=== PATIENT | male | born 1990 | race Caucasian/White ===

== ENCOUNTER 2016-10-12 16:27 | Emergency (ER) | payer SELFPAY ==
[2016-10-12 16:30] VITALS: BP 104/55; PULSE 96; TEMP 98.3; BMI 22.8
--- NOTE | 2016-10-12 17:19 | PDOC ---
History of Present Illness - General Chief Complaint: Injury Stated Complaint: RT ANKLE INJURY Time Seen by Provider: 10/12/16 17:18 History Source: Patient Exam Limitations: No Limitations - History of Present Illness Initial Comments: 10/12/16 17:19 Patient complains of right ankle pain status post fall at work. States was an inversion type injury, is able to ambulate but is painful. No history of sprained to that same ankle 10/12/16 17:28 10/12/16 17:38 Occurred: reports: just prior to arrival Severity: reports: mild, moderate Pain Location: reports: lower extremity (right ankle , inversion) Method of Injury: Yes: unknown, fall Modifying Factors: improves with: None Associated Symptoms (Fall): denies symptoms Past History - Travel Traveled outside of the country in the last 30 days: No Close contact w/someone who was outside of country & ill: No - Past Medical History Allergies/Adverse Reactions: Allergies Allergy/AdvReac Type Severity Reaction Status Date / Time No Known Allergies Allergy Verified 10/12/16 16:30 Home Medications: Ambulatory Orders Omeprazole [Prilosec] 40 mg PO ASDIR 12/31/15 Anemia: No Asthma: Yes Cancer: No Cardiac Disorders: No CVA: No COPD: No CHF: No Dementia: No Diabetes: No GI Disorders: Yes (STOMACH PAIN) Disorders: No HTN: No Hypercholesterolemia: No Liver Disease: No Seizures: No Thyroid Disease: No - Immunization History Immunization Up to Date: No - Psycho/Social/Smoking Cessation Hx Anxiety: No Suicidal Ideation: No Smoking History: Never smoked Information on smoking cessation initiated: No Hx Alcohol Use: No Drug/Substance Use Hx: No Substance Use Type: None Review of Systems - Review of Systems Able to Perform ROS?: Yes Is the patient limited [place] proficient: Yes Constitutional: Yes: See HPI. No: Symptoms Reported, Malaise HEENTM: No: Symptoms Reported Musculoskeletal: Yes: Symptoms Reported, See HPI, Joint Pain, Joint Swelling Integumentary: Yes: See HPI. No: Symptoms Reported All Other Systems: Reviewed and Negative *Physical Exam - Vital Signs Last Vital Signs Temp Pulse Resp BP Pulse Ox 98.3 F 96 H 18 104/55 98 10/12/16 16:29 10/12/16 16:29 10/12/16 16:29 10/12/16 16:29 10/12/16 16:29 - Physical Exam General Appearance: Yes: Nourished, Appropriately Dressed, Apparent Distress, Mild Distress HEENT: positive: TONY, Normal ENT Inspection, TMs Normal, Pharynx Normal Neck: positive: Supple. negative: Tender Extremity: positive: Normal Capillary Refill, Normal Inspection, Tender (tender to right lateral malleolus, no crepitus or step-offs, negative squeeze test, negative medial malleoli are, fifth metatarsal or navicular tenderness.). 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 Will treat with Vance , Aircast and crutches Medical Decision Making - Medical Decision Making 10/12/16 17:59 10/12/16 18:00 And crutches. No evidence of fracture in x-ray *DC/Admit/Observation/Transfer Diagnosis at time of Disposition: Sprain of right ankle Qualifiers: Encounter type: initial encounter Involved ligament of ankle: unspecified ligament Qualified Code(s): S93.401A - Sprain of unspecified ligament of right ankle, initial encounter - Discharge Dispostion Disposition: HOME Condition at time of disposition: Stable Admit: No - Referrals Referrals: Luis Grimm MD [Primary Care Provider] - Marc Abreu MD [Staff Physician] - - Patient Instructions Printed Discharge Instructions: DI for Ankle Sprain Additional Instructions: Rest, ice to area on and off for 15 minutes 4-6 times a day Avoid heavy lifting or exercise until pain and swelling is resolved or until further directed Keep area highly elevated to reduce swelling Use splints/Vance wrap as directed Followup with orthopedist in one to 2 days if not improving, if significantly improved may wait one week for followup with orthopedist May use ibuprofen 2-200 mg tablets every 6 hours as needed for pain - Post Discharge Activity Work/School Note: Back to Work
== END 2016-10-12 18:15 | disposition home or self-care (01) ==
LOC: JERFT 16:27
PROC: 2W3LX1Z Immobilization of Right Lower Extremity using Splint (ICD-10-PCS; principal; 2016-10-12)
DX: S93.401A Sprain of unspecified ligament of right ankle, initial encounter (principal); W18.39XA Other fall on same level, initial encounter; Y93.89 Activity, other specified; Y92.89 Other specified places as the place of occurrence of the external cause; Y99.0 Civilian activity done for income or pay
CPT/HCPCS: 73610-TC-RT; 99282-25

== ENCOUNTER 2019-04-16 23:53 | Emergency (ER) | payer OTHER ==
[2019-04-17] VITALS: BP 117/63; PULSE 97; TEMP 98.3; BMI 24.3
[2019-04-17] MEDS ORDERED: IBUPROFEN 600 MG TABLET (FP) PO ONE ×2 (00:23→00:24)
--- NOTE | 2019-04-17 00:32 | PDOC ---
Documentation entered by Corrie Nieto SCRIBE, acting as scribe for Esme Paniagua DO. Esme Paniagua, DO: This documentation has been prepared by the scribe, Corrie Nieto SCRIBE, under my direction and personally reviewed by me in its entirety. I confirm that the documentation accurately reflects all work, treatment, procedures, and medical decision making performed by me. Attending Attestation - Resident Resident Name: Chandler Betancur - ED Attending Attestation I have performed the following: I have examined & evaluated the patient, The case was reviewed & discussed with the resident, I agree w/resident's findings & plan, Exceptions are as noted - HPI HPI: 04/17/19 00:40 The patient is a 28-year-old male with a past medical history significant for childhood asthma who presents to the emergency department with left foot pain. The patient reports around 5:00 pm today he was playing basketball, denies known injury, however when he was walking after the game, he was limping. The patient reports associated with numbness and tingling to the foot. The patient reports the pain is present with ambulation and rest. The patient reports taking Tylenol for the pain denies relief. - Physicial Exam PE: 04/17/19 00:34 GENERAL: Awake, alert, and fully oriented, in no acute distress Lower extremity: No tibia or fibula tenderness. No lateral or medial malleolus tenderness. Ankle stable, tenderness along the 1st, 2nd and 3rd metatarsal, pain with movement. Sensation intact, brisk cap refill, pulse intact, no pain to the 4th or 5th metatarsal. Bruising to the dorsum aspect of the 2nd digit at the MTP. Soft tissue swelling. - Medical Decision Making 04/17/19 00:30 I, Dr. Esme Paniagua DO, attest that this document has been prepared under my direction and personally reviewed by me in its entirety. I further attest, that it accurately reflects all work, treatment, procedures and medical decision -making performed by me. a/p: 28yo male with L foot pain after playing basketball -pt with bruising to the 2nd MTP dorsum side of food -soft tissue swelling -pt with pain along 1st, 2nd, 3rd met -concern for fx -will send for xray, ice, motrin - took tylenol prior to arrival -ambultory in the ed 04/17/19 01:07 pt with 2nd and 3rd metatarsal fx will place in posterior leg splint and crutches pt will need ortho follow up and RICE at home 04/17/19 01:08 pt stable for dc to home with ortho follow up Procedures - Splinting Splint Location: Left: Foot Pre-Proc Neuro Vasc Exam: normal Hand-Made Type: orthoglass Splint Type: Yes: Short Leg (posterior short leg to L leg) Post-Proc Neuro Vasc Exam: normal Vance Bandage: yes, 4"
--- NOTE | 2019-04-17 00:33 | PDOC ---
History of Present Illness - General Chief Complaint: Injury Stated Complaint: INJURY Time Seen by Provider: 04/17/19 00:02 - History of Present Illness Initial Comments: 04/17/19 00:28 This is a 28 year old male with PMH significant for asthma as a child. He presented to the ER with complaints of pain and swelling in his left foot for the past 7 hours. He was playing basketball at 5PM and noticed mild pain and tightness in his left foot after he finished playing around 6PM. The pain gradually worsened, rated 8/10 in the ER, associated with numbness and tingling , exacerbated by movement and bearing weight. He took extra strength Tylenol with minimal relief of symptoms. He has a history of hairline fracture in his left foot 10 years ago and a right sided ankle sprain 2 years ago. Past History - Travel Traveled outside of the country in the last 30 days: No Close contact w/someone who was outside of country & ill: No - Past Medical History Allergies/Adverse Reactions: Allergies Allergy/AdvReac Type Severity Reaction Status Date / Time No Known Allergies Allergy Verified 04/16/19 23:59 Home Medications: Ambulatory Orders Omeprazole [Prilosec] 40 mg PO ASDIR 12/31/15 Ibuprofen [Motrin -] 600 mg PO PRN PRN 7 Days #21 tablet 04/17/19 Anemia: No Asthma: Yes Cancer: No Cardiac Disorders: No CVA: No COPD: No CHF: No Dementia: No Diabetes: No GI Disorders: Yes (STOMACH PAIN) Disorders: No HTN: No Hypercholesterolemia: No Liver Disease: No Seizures: No Thyroid Disease: No - Immunization History Immunization Up to Date: No - Psycho Social/Smoking Cessation Hx Smoking History: Never smoked Have you smoked in the past 12 months: No Information on smoking cessation initiated: No Hx Alcohol Use: No Drug/Substance Use Hx: No Substance Use Type: None Review of Systems - Review of Systems Able to Perform ROS?: Yes Is the patient limited Citizen [place] proficient: No Constitutional: No: Symptoms Reported, See HPI, Chills, Diaphoresis, Fever, Loss of Appetite, Malaise, Night Sweats, Weakness, Weight Stable, Unintentional Wgt. Loss, Unexplained wgt Loss, Other HEENTM: No: Symptoms Reported, See HPI, Eye Pain, Blurred Vision, Tearing, Recent change in vision, Double Vision, Cataracts, Ear Pain, Ocular Prothesis, Ear Discharge, Nose Pain, Nose Congestion, Tinnitus, Nose Bleeding, Hearing Loss , Throat Pain, Throat Swelling, Mouth Pain, Dental Problems, Difficulty Swallowing, Mouth Swelling, Other Respiratory: No: Symptoms reported, See HPI, Cough, Orthopnea, Shortness of Breath, SOB with Exertion, SOB at Rest, Stridor, Wheezing, Productive cough, Hemoptysis, Other Cardiac (ROS): No: Symptoms Reported, See HPI, Chest Pain, Edema, Irregular Heart Rate, Lightheadedness, Palpitations, Syncope, Chest Tightness, Other ABD/GI: No: Symptoms Reported, See HPI, Abdominal Distended, Abd. Pain w/ defecation, Blood Streaked Bowels, Constipated, Diarrhea, Difficulty Swallowing , Nausea, Poor Appetite, Poor Fluid Intake, Rectal Bleeding, Vomiting, Indigestion, Abdominal cramping, Tarry Stools, Other : No: Symptoms Reported, See HPI, Burning, Dysuria, Discharge, Frequency, Flank Pain, Hematuria, Incontinence, Pain, Urgency, Testicular Mass, Testicular Swelling, Lesions, Testicular Pain, Other Musculoskeletal: No: Symptoms Reported, See HPI, Back Pain, Gout, Joint Pain, Joint Swelling, Muscle Pain, Muscle Weakness, Neck Pain, Joint Stiffness, Other Integumentary: No: Symptoms Reported, See HPI, Bruising, Change in Color, Change in Hair/Nails, Dryness, Erythema, Flushing, Lesions, Lumps, Pallor, Pruritus, Rash, Sweating, Other Neurological: No: Symptoms reported, See HPI, Headache, Numbness, Paresthesia, Pre-Existing Deficit, Seizure, Tingling, Tremors, Weakness, Unsteady Gait, Ataxia, Dizziness, Other Psychiatric: No: Anxiety, Depression, Frequent Crying, Stressors, Sleep Pattern Change, Emotional Problems, Mood Swings, Change in Appetite, Other Endocrine: No: Symptoms Reported, See HPI, Excessive Sweating, Flushing, Intolerance to Cold, Intolerance to Heat, Increased Hunger, Increased Thirst, Increased Urine, Unexplained Weight Gain, Unexplained Weight Loss, Change in Weight, Other Hematologic/Lymphatic: No: Symptoms Reported, See HPI, Anemia, Blood Clots, Easy Bleeding, Easy Bruising, Bleeding Diathesis, Lymph Node Abnormalities, Swollen Glands, Other *Physical Exam - Vital Signs Last Vital Signs Temp Pulse Resp BP Pulse Ox 98.3 F 97 H 20 117/63 99 04/16/19 23:59 04/16/19 23:59 04/16/19 23:59 04/16/19 23:59 04/16/19 23:59 - Physical Exam Comments: 04/17/19 00:35 Left lower extremity: Swollen left foot, tenderness along dorsal aspect of 1st, 2nd, and 3rd metatarsal, bruising at the base of the dorsal aspect of the 2nd metatarsal, decreased range of motion due to pain, sensations intact, pulses 2+ General Appearance: Yes: Appropriately Dressed HEENT: positive: TONY, Normal ENT Inspection, Normal Voice, Symmetrical, Pharynx Normal Neck: positive: Trachea midline, Supple Respiratory/Chest: positive: Lungs Clear, Normal Breath Sounds Cardiovascular: positive: Regular Rhythm, Regular Rate Gastrointestinal/Abdominal: positive: Normal Bowel Sounds ED Treatment Course - Medications Given in the ED: ED Medications Discontinued Medications Generic Name Dose Route Start Last Admin Trade Name Freq PRN Reason Stop Dose Admin Ibuprofen 600 mg 04/17/19 00:23 04/17/19 00:26 Motrin - PO 04/17/19 00:24 600 mg ONCE ONE Administration Medical Decision Making - Medical Decision Making 04/17/19 00:39 - X Ray left foot ordered - Motrin 600mg for pain Discharge - Discharge Information Problems reviewed: Yes Clinical Impression/Diagnosis: Fractured metatarsal bone Condition: Guarded Disposition: HOME - Follow up/Referral - Patient Discharge Instructions Patient Printed Discharge Instructions: How to Take Care of Your Splint Additional Instructions: You presented to the ER because of pain and swelling in your left foot. While you were here, we did an XRay of your foot, and found that you have 2 fractures (2nd and 3rd metatarsal bones). We placed a splint on your left leg to help the bones set and heal. Care instructions: - Rest your foot, do not put weight on it, and do not attempt to play sports. - Please keep your foot elevated by using a pillow when you sleep. - It is very important that you keep your splint dry. - For showers, please use a cast cover, which you can purchase at any pharmacy. - Ice your foot frequently, but make sure to cover the ice with a bag and towel to keep the splint dry. Medication: Please take Motrin by mouth when you feel pain, not more than 3 times a day, for a total of 7 days. Follow up: Please follow up with your PCP within 1 week Please follow up with an orthopedic physician as soon as possible. Here are some recommendations: [address] Additional information: Please return to the ER if there is no improvement in your pain or if you develop sudden sharp pain, if your foot feels cold or numb, if you develop a fever, or if you feel light headed. - Post Discharge Activity
== END 2019-04-17 01:35 | disposition home or self-care (01) ==
LOC: JER 23:53
PROC: 2W3RX1Z Immobilization of Left Lower Leg using Splint (ICD-10-PCS; principal; 2019-04-16)
DX: S92.322A Displaced fracture of second metatarsal bone, left foot, initial encounter for closed fracture (principal); S92.332A Displaced fracture of third metatarsal bone, left foot, initial encounter for closed fracture; X50.9XXA Other and unspecified overexertion or strenuous movements or postures, initial encounter; Y93.67 Activity, basketball; Y92.310 Basketball court as the place of occurrence of the external cause; Y99.8 Other external cause status
CPT/HCPCS: 73630-TC-LT; 99282-25

== ENCOUNTER 2020-09-02 01:24 | Emergency (ER) | payer OTHER ==
[2020-09-02 02:16] VITALS: TEMP 97.6; BMI 24.3
[2020-09-02] MEDS ORDERED: IBUPROFEN 600 MG TABLET (FP) PO ONE ×2 (02:46→04:49)
[2020-09-02] MEDS ORDERED: IBUPROFEN 400 MG TABLET (FP) PO ONE ×2 (02:59→04:50)
[2020-09-02 03:22] LABS: URINE APPEARANCE CLEAR; URINE BILIRUBIN NEGATIVE (NEGATIVE); URINE COLOR YELLOW; URINE GLUCOSE (UA) NEGATIVE (NEGATIVE); URINE KETONE TRACE (NEGATIVE); URINE LEUK ESTERASE NEGATIVE (NEGATIVE); URINE NITRITE NEGATIVE (NEGATIVE); URINE PROTEIN NEGATIVE (NEGATIVE)
[2020-09-02 04:52] VITALS: BP 112/65; PULSE 57
== END 2020-09-02 04:52 | disposition home or self-care (01) ==
LOC: JER 01:24
DX: R07.81 Pleurodynia (principal)
CPT/HCPCS: 71101-TC-LT-FY; 81003; 99284-25

== ENCOUNTER 2021-02-11 20:22 | Emergency (ER) | payer OTHER ==
[2021-02-11 20:32] VITALS: BP 125/76; PULSE 74; TEMP 98.6; BMI 25.0
[2021-02-11] MEDS ORDERED: KETOROLAC TROMETHAMINE 30 MG/1 ML VIAL IM ONE (21:35)
[2021-02-11] MEDS ORDERED: KETOROLAC TROMETHAMINE 30 MG/1 ML VIAL ONE (21:41)
== END 2021-02-11 22:05 | disposition home or self-care (01) ==
LOC: JER 20:22 → JERFT 20:22
PROC: 3E0233Z Introduction of Anti-inflammatory into Muscle, Percutaneous Approach (ICD-10-PCS; principal; 2021-02-11)
DX: M25.561 Pain in right knee (principal)
CPT/HCPCS: 73562-TC-RT-FY; 99284-25

== ENCOUNTER 2021-09-28 19:33 | Emergency (ER) | payer OTHER ==
[2021-09-28 19:43] VITALS: TEMP 98.1; BMI 23.7
[2021-09-28] MEDS ORDERED: ACETAMINOPHEN 1000 MG/100 ML BAG IVPB ONE (20:25)
[2021-09-28] MEDS ORDERED: SODIUM CHLORIDE 1,000 ML IV STA (20:25)
[2021-09-28] MEDS ORDERED: PANTOPRAZOLE SODIUM 40 MG VIAL IVPB ONE (20:25)
[2021-09-28] MEDS ORDERED: MAG HYDROX/AL HYDROX/SIMETH 30 ML UNIT-DOSE CUP PO ONE (20:29)
[2021-09-28] MEDS ORDERED: ACETAMINOPHEN INJECTION 100 ML IVPB ONE (20:43)
[2021-09-28] MEDS ORDERED: PANTOPRAZOLE SODIUM 40 MG/100 ML BAG IVPB ONE ×2 (20:43→20:44)
[2021-09-28] MEDS ORDERED: MAG HYDROX/AL HYDROX/SIMETH 30 ML UNIT-DOSE CUP ONE (20:43)
[2021-09-28 21:08] LABS: BASO % 0.3 % (0-2.0); EOS % 0.4 % (0-4.5); HEMATOCRIT 41.6 % (35.4-49); HEMOGLOBIN 14.3 GM/dL (11.7-16.9); LYMPH % 14.9 % (8-40); MCH 30.2 pg (25.7-33.7); MCHC 34.3 g/dl (32.0-35.9); MEAN CELL VOLUME 87.8 fl (80-96); MEAN PLT VOLUME 8.5 fl (7.5-11.1); MONO % 12.8 % (3.8-10.2); NEUT % 71.6 % (42.8-82.8); PLATELET COUNT 253 10^3/uL (134-434); RBC 4.73 M/mm3 (4.00-5.60); RDW 13.4 % (11.9-15.9); WHITE BLOOD COUNT 12.7 K/mm3 (4.0-10.0)
[2021-09-28 21:29] LABS: CALCIUM 8.7 mg/dL (8.5-10.1)
[2021-09-28 21:30] LABS: ALBUMIN 3.5 g/dl (3.4-5.0); MAGNESIUM 1.7 mg/dL (1.8-2.4)
[2021-09-28 21:33] LABS: CREATININE 0.9 mg/dL (0.55-1.3)
[2021-09-28 21:34] LABS: BILIRUBIN,TOTAL 0.3 mg/dL (0.2-1); TOT PROT 6.7 g/dl (6.4-8.2)
[2021-09-28 21:59] LABS: PH,URINE 5.5 (5.0-8.0); URINE APPEARANCE CLEAR; URINE BILIRUBIN NEGATIVE (NEGATIVE); URINE COLOR YELLOW; URINE GLUCOSE (UA) NEGATIVE (NEGATIVE); URINE KETONE NEGATIVE (NEGATIVE); URINE LEUK ESTERASE NEGATIVE (NEGATIVE); URINE NITRITE NEGATIVE (NEGATIVE); URINE PROTEIN TRACE (NEGATIVE); URINE UROBILINOGEN 0.2 mg/dL (0.2-1.0)
[2021-09-28 23:08] VITALS: BP 122/74; PULSE 82
== END 2021-09-28 23:58 | disposition home or self-care (01) ==
LOC: JER 19:33 → JERFT 19:33
PROC: 3E0333Z Introduction of Anti-inflammatory into Peripheral Vein, Percutaneous Approach (ICD-10-PCS; principal; 2021-09-28)
PROC: 3E033GC Introduction of Other Therapeutic Substance into Peripheral Vein, Percutaneous Approach (ICD-10-PCS; 2021-09-28)
DX: K51.90 Ulcerative colitis, unspecified, without complications (principal)
CPT/HCPCS: 36415; 74177-TC; 80053; 81003; 83690; 83735; 84100; 85025; 87045; 87046; 87177; 87186; 87205; 87209; 87324; 87449; 99285-25

== ENCOUNTER 2023-01-02 21:17 | Emergency (ER) | payer OTHER ==
[2023-01-02 21:25] VITALS: BP 122/71; PULSE 95; RESP 18; TEMP 98.4; BMI 26.6
[2023-01-02] MEDS ORDERED: FAMOTIDINE 20 MG/50 ML IVPB 20 MG/50 ML MG IVPB ONE ×2 (21:49→22:18)
[2023-01-02] MEDS ORDERED: ONDANSETRON *ODT* 4 MG TABLET SL ONE (21:49)
[2023-01-02] MEDS ORDERED: SODIUM CHLORIDE 0.9% 500 ML INFUS.BAG IV ONE (21:49)
[2023-01-02] MEDS ORDERED: ONDANSETRON *ODT* 4 MG TABLET ONE (22:18)
[2023-01-02 22:41] LABS: BASO % 0.3 % (0-2.0); EOS % 0.1 % (0-4.5); HEMATOCRIT 49.3 % (35.4-49); HEMOGLOBIN 16.9 GM/dL (11.7-16.9); LYMPH % 3.1 % (8-40); MCH 29.7 pg (25.7-33.7); MCHC 34.3 g/dl (32.0-35.9); MEAN CELL VOLUME 86.4 fl (80-96); MEAN PLT VOLUME 8.6 fl (7.5-11.1); MONO % 8.8 % (3.8-10.2); NEUT % 87.7 % (42.8-82.8); PLATELET COUNT 281 10^3/uL (134-434); RDW 13.6 % (11.9-15.9); WHITE BLOOD COUNT 15.5 K/mm3 (4.0-10.0)
[2023-01-02 23:07] LABS: POTASSIUM 4.1 mmol/L (3.5-5.1)
[2023-01-02 23:09] LABS: CALCIUM 9.5 mg/dL (8.5-10.1)
[2023-01-02 23:10] LABS: ALBUMIN 4.3 g/dl (3.4-5.0); BLOOD UREA NITROGEN 10.8 mg/dL (7-18)
[2023-01-02 23:14] LABS: TOT PROT 7.8 g/dl (6.4-8.2)
[2023-01-02 23:16] LABS: BILIRUBIN,TOTAL 1.5 mg/dL (0.2-1)
[2023-01-02 23:29] LABS: URINE APPEARANCE CLEAR; URINE BILIRUBIN NEGATIVE (NEGATIVE); URINE COLOR YELLOW; URINE GLUCOSE (UA) NEGATIVE (NEGATIVE); URINE KETONE TRACE (NEGATIVE); URINE LEUK ESTERASE NEGATIVE (NEGATIVE); URINE NITRITE NEGATIVE (NEGATIVE); URINE PROTEIN TRACE (NEGATIVE); URINE UROBILINOGEN 0.2 mg/dL (0.2-1.0)
== END 2023-01-02 23:32 | disposition home or self-care (01) ==
LOC: JER 21:17
PROC: 3E033GC Introduction of Other Therapeutic Substance into Peripheral Vein, Percutaneous Approach (ICD-10-PCS; principal; 2023-01-02)
DX: R11.2 Nausea with vomiting, unspecified (principal); R10.84 Generalized abdominal pain; R19.7 Diarrhea, unspecified; K52.9 Noninfective gastroenteritis and colitis, unspecified
CPT/HCPCS: 36415; 80053; 81003; 85025; 87086; 99284-25; Q0162